=== PATIENT | male | born 1935 | race Caucasian/White ===

== ENCOUNTER 2016-06-03 14:38 | Emergency (ER) | payer MEDICARE, OTHER ==
[2016-06-03] MEDS ORDERED: ASPIRIN 81 MG TAB.CHEW PO ONE ×2 (14:57)
[2016-06-03] MEDS ORDERED: ASPIRIN 81 MG TAB.CHEW ONE (14:57)
--- NOTE | 2016-06-03 15:00 | ERNOTE ---
Dyspnea - General Presenting Symptoms: shortness of breath Time Seen by Provider: 06/03/16 14:38 Source: patient Exam Limitations: no limitations - Immun/Allergies/Home Medications Immunizations: IMMUNIZATION HX Immunizations Up to Date No History of Influenza Vaccine No Hx Pneumococcal Vaccination No Allergies/Adverse Reactions: Allergies No Known Allergies Allergy (Verified 06/03/16 14:54) Home Medications: HOME MEDICATIONS Docusate Sodium [Stool Softener] 50 mg PO DAILY 08/08/14 [Last Taken Unknown] Ibuprofen [Motrin] 600 mg PO Q6H PRN 08/11/14 [Last Taken Unknown] - History of Present Illness Narrative: Patient states that he has been short of breath for three days and feels that ' his chest is full, can't cough it out', denies a cough, but is coughing occasionally while here. Shortness of breath worse with exertion and laying down flat Date (Duration): 05/31/16 Review of Systems - Review of Systems Constitutional: Absent: recent illness, fever EYE: Absent: double vision ENT: Present: nose congestion, nasal drainage Respiratory: Present: See HPI, shortness of breath, cough Cardiology: Present: See HPI Gastrointestinal/Abdominal: Absent: nausea, vomiting, diarrhea, abdominal pain Genitourinary: Present: no symptoms reported Musculoskeletal: Absent: back pain Neurological: Absent: headache, weakness, numbness - Patient's Past Medical History Patient History - Medical: Arthritis Patient History - Cardiac/Respiratory: Asthma Patient History - Cancer: No Hx of Cancer Patient History - Surgical Procedures: Cataracts, Urology - abdominal surgery age 6 months Patient History - Other: None - Social History Living Situations: spouse Abuse History: No History of abuse Psych History: No pertinent hx Smoking Status: Former smoker Smoking Stop Date: 03/13/79 Alcohol Use: none Drug Use: none - Immunizations Immunizations Up to Date: No Hx Pneumococcal Vaccination: No History of Influenza Vaccine: No Physical Exam - Physical Exam General Appearance: Present: wd/wn, alert, no apparent distress Eye Exam: Normal inspection: bilateral Ears, Nose, Throat: Present: normal ENT inspection, normal pharynx Neck: Present: normal inspection Respiratory: Present: no respiratory distress, no accessory muscle use, chest nontender, decreased breath sounds, wheezing - very few Cardiovascular/Chest: Present: regular rate, rhythm, no murmur Gastrointestinal/Abdominal: Present: normal bowel sounds, nontender, nondistended, soft Extremity Exam: Present: no edema Neurological Exam: Present: alert, oriented, normal mood/affect Skin Exam: Present: normal color, warm/dry ED Progress - Results and Orders Patient's Lab Results:: I have reviewed the patient's lab results. - Vital Signs Patient's Vital Signs:: I have reviewed the patient's vital signs. Vital Signs: Vital Signs 06/03/16 06/03/16 14:39 14:47 Temperature 36.2 C L Pulse Rate 92 98 Respiratory 17 Rate Blood Pressure 164/88 O2 Sat by Pulse 92 Oximetry - EKG EKG: NSR, nonspecific ST T wave changes EKG read: Interp. by me - X-Ray X-Ray #1 X-Ray: chest - hyperinflated, no acute finding Interpretation: Reviewed by me - Progress/Reassessment Chief Complaint: Dyspnea Progress Note-Subjective: 06/03/16 16:27 discussed normal test results with patient, he is feeling well, ready to go home Departure Clinical Impression: Bronchitis - Departure Disposition: Home self-care Condition: Good Instructions: Acute Bronchitis, [id number] Additional Instructions: try over the counter mucinex call the family medicine or internal medicine office for a follow up appointment Referrals: Isaak Thompson DO [Staff Physician] -
[2016-06-03 15:10] LABS: Hematocrit 43.4 % (42.0-52.0); Hemoglobin 14.6 gm/dL (13.5-18.0); Mean Cell Volume 88.2 fl (78-100); Mean Corpuscular Hemoglobin 29.7 pg (27-31); Mean Corpuscular Hgb Conc 33.6 g/dl (32-36); Mean Platelet Volume 10.1 fl (6.0-9.5); Platelet Count 156 K/mm3 (150-450); Red Blood Count 4.92 M/mm3 (4.7-6.0); Red Cell Distribution Width 11.8 % (11.5-14.0)
[2016-06-03 15:21] LABS: Total Cells Counted 100
[2016-06-03 15:30] LABS: ALT 21 U/L (19-67); AST 28 U/L (0-48); Albumin * 3.2 gm/dl (3.4-5.0); Alkaline Phosphatase * 109 U/L (50-170); Anion Gap 15.1 mmol/L (6.8-13.8); BNP * 103 pg/mL (5-650); BUN/Creatinine Ratio 19.4 (9.0-21.6); Bilirubin, Total 0.9 mg/dL (0.0-1.1); Blood Urea Nitrogen 18 mg/dL (6-23); Ca. Corrected For Albumin 8.9 mg/dL (8.4-10.2); Calcium * 8.6 mg/dL (7.9-10.9); Carbon Dioxide 28.7 mmol/L (24-32.6); Chloride 101 mmol/L (97-106); Glucose * 115 mg/dL (70-110); Potassium 3.8 mmol/L (3.4-4.6); Sodium 141 mmol/L (132-142); Total Protein 7.1 gm/dL (6.2-8.2)
[2016-06-03 15:34] LABS: Troponin I Less than 0.017 ng/ml (0.00-0.10)
[2016-06-03 15:41] LABS: Band 1 % (0-2.0); Eosinophil 1 % (0-3); Lymphocyte 34 % (20-51); Monocyte 11 % (0-9); Neutrophil 53 % (42-75); Neutrophil # 2.1 K/mm3 (1.3-6.0)
[2016-06-03 15:42] LABS: Platelet Estimate Decreased (NORMAL); RBC Morphology Normal (NORMAL)
[2016-06-03 16:48] VITALS: BP 125/62
== END 2016-06-03 16:27 | disposition home or self-care (01) ==
LOC: ER 14:38
DX: J40 Bronchitis, not specified as acute or chronic (principal); Z87.891 Personal history of nicotine dependence

== ENCOUNTER 2017-02-13 12:12 | Emergency (ER) | payer MEDICARE, OTHER ==
--- NOTE | 2017-02-13 13:45 | ERNOTE ---
Abdominal HPI - Narrative Date of Service: 02/13/17 - General Chief Complaint: Constipation Time Seen by Provider: 02/13/17 13:23 - Immun/Allergies/Home Medications Immunizatons: IMMUNIZATION HX Immunizations Up to Date No History of Influenza Vaccine No Hx Pneumococcal Vaccination No Allergies/Adverse Reactions: Allergies No Known Allergies Allergy (Verified 02/13/17 12:21) Home Medications: HOME MEDICATIONS Ibuprofen [Motrin] 600 mg PO Q6H PRN 08/11/14 [Last Taken Unknown] - History of Present Illness Narrative: Pt. comes in with c/o no BM x 7 days. Pt. states that he grunts and grunts and the L side of his buttock becomes very tender and nothing comes out. Pt. states that he feels so full that he is not eating or drinking. Timing: getting worse Quality: mild, fullness Activities at Onset: none Modifying Factors - (Improves): Present: other - denies Modifying Factors - (Worsens): Present: eating Associated Symptoms: Present: denies symptoms Prior Abdominal Problems: Present: none Prior Treatment: Absent: recently seen, treated by physician, recently hospitalized, currently on antibiotics Review of Systems - Review of Systems Constitutional: Present: no symptoms reported. Absent: fever, chills, weakness , fatigue, malaise EYE: Present: no symptoms reported ENT: Present: no symptoms reported Respiratory: Present: no symptoms reported. Absent: shortness of breath, cough , wheezing Cardiology: Present: no symptoms reported. Absent: chest pain, palpitations, edema Gastrointestinal/Abdominal: Present: constipation, eating less. Absent: nausea , vomiting, diarrhea, abdominal pain Genitourinary: Present: no symptoms reported Musculoskeletal: Present: no symptoms reported. Absent: back pain, joint pain Skin: Present: no symptoms reported. Absent: rash, change in color Neurological: Present: no symptoms reported. Absent: headache, dizziness/light- headedness, numbness, tingling Endocrine: Present: no symptoms reported Hematologic/Lymphatic: Present: no symptoms reported All Other Systems: All systems neg except as marked - Patient's Past Medical History Patient History - Medical: Arthritis Patient History - Cardiac/Respiratory: Asthma Patient History - Cancer: No Hx of Cancer Patient History - Surgical Procedures: Cataracts, Urology Patient History - Other: None - Social History Living Situations: home Abuse History: No History of abuse Psych History: No pertinent hx - Immunizations Immunizations Up to Date: No Hx Pneumococcal Vaccination: No History of Influenza Vaccine: No Physical Exam - Physical Exam General Appearance: Present: wd/wn, alert, no apparent distress Head Exam: Present: normal inspection, no evidence of injury Eye Exam: Normal inspection: bilateral, PERRL: bilateral, EOMI: bilateral Ears, Nose, Throat: Present: normal ENT inspection, normal pharynx Neck: Present: normal inspection, nontender, supple, full range of motion. Absent: lymphadenopathy (R), lymphadenopathy (L) Respiratory: Present: no respiratory distress, normal breath sounds, no accessory muscle use, chest nontender, lungs clear Cardiovascular/Chest: Present: regular rate, rhythm, no murmur, normal peripheral pulses Gastrointestinal/Abdominal: Present: nontender, no organomegaly, abnormal bowel sounds - hypo, distended - diffuse Rectal Exam: Present: nontender, normal rectal tone, other - prostate mildly enlarged and firm. Absent: hemorrhoids Back Exam: Present: normal inspection, normal range of motion, no CVA tenderness , no vertebral tenderness Extremity Exam: Present: normal inspection, non-tender, normal range of motion, no edema Neurological Exam: Present: alert, oriented, normal mood/affect, no motor/ sensory deficits, corrections lieutenant II-XII nml as tested, normal cerebellar test Skin Exam: Present: normal color, warm/dry. Absent: pallor, skin rash ED Progress - Date and Time Seen: Date and Time: 02/13/17 16:12 Pt. had extra large results and states taht he is feeling better. - Vital Signs Patient's Vital Signs:: I have reviewed the patient's vital signs. Vital Signs: Vital Signs 02/13/17 12:16 Temperature 36.8 C Pulse Rate 76 Respiratory 12 Rate Blood Pressure 138/74 O2 Sat by Pulse 94 Oximetry - X-Ray X-Ray #1 X-Ray: abdomen Interpretation: Reviewed by me X-ray Comments: severe stool retention no obstruction - Progress/Reassessment Chief Complaint: Constipation Progress:: Improved Departure Clinical Impression: Constipation Qualifiers: Constipation type: slow transit constipation Qualified Code(s): K59.01 - Slow transit constipation - Departure Disposition: Home self-care Condition: Good Instructions: Constipation, Adult, [id number] Additional Instructions: Please take 1 capful of Miralax daily until having 1-2 BM daily.
[2017-02-13] MEDS ORDERED: ACETAMINOPHEN 500 MG TABLET PO ONE (14:42)
[2017-02-13 16:19] VITALS: BP 130/65
== END 2017-02-13 16:19 | disposition home or self-care (01) ==
LOC: ER 12:12
DX: K59.01 Slow transit constipation (principal)

== ENCOUNTER 2017-04-27 18:27 | Observation (INO) | payer MEDICARE, OTHER ==
[2017-04-27] MEDS ORDERED: TETANUS AND DIPHTHERIA TOXOID 0.5 ML SYRG IM ONE ×2 (18:47→19:30)
--- NOTE | 2017-04-27 19:15 | ERNOTE ---
<Zechariah Bailon - Last Filed: 04/27/17 19:07> Trauma/Assault HPI - Narrative Date of Service: 04/27/17 - General Stated Complaint: FALL Time Seen by Provider: 04/27/17 18:38 Source: patient Exam Limitations: no limitations - Immun/Allergies/Home Medications Immunizations: IMMUNIZATION HX Immunizations Up to Date Yes History of Influenza Vaccine No Hx Pneumococcal Vaccination No Allergies/Adverse Reactions: Allergies No Known Allergies Allergy (Verified 04/27/17 18:37) Home Medications: HOME MEDICATIONS Albuterol Sulfate [Ventolin HFA] 2 puff IH QID 04/27/17 [Last Taken Unknown] Allopurinol [Zyloprim] 600 mg PO DAILY 04/27/17 [Last Taken Unknown] Atenolol [Tenormin] 100 mg PO DAILY 04/27/17 [Last Taken Unknown] Atorvastatin Calcium 20 mg PO DAILY 04/27/17 [Last Taken Unknown] Cetirizine HCl [Zyrtec] 10 mg PO DAILY 04/27/17 [Last Taken Unknown] Chlorthalidone [Hygroton] 25 mg PO DAILY 04/27/17 [Last Taken Unknown] Divalproex Sodium 250 mg PO BID 04/27/17 [Last Taken Unknown] Gabapentin 900 mg PO TID 04/27/17 [Last Taken Unknown] Indomethacin 50 mg PO BID 04/27/17 [Last Taken Unknown] Lisinopril [Zestril] 40 mg PO DAILY 04/27/17 [Last Taken Unknown] Meloxicam [Mobic] 15 mg PO DAILY 04/27/17 [Last Taken Unknown] Potassium Chloride [Klor-Con 10] 10 meq PO DAILY 04/27/17 [Last Taken Unknown] Sildenafil Citrate [Viagra] 100 mg PO PRN 04/27/17 [Last Taken Unknown] amLODIPine BESYLATE [Norvasc] 5 mg PO DAILY 04/27/17 [Last Taken Unknown] glyBURIDE [Micronase] 5 mg PO DAILY 04/27/17 [Last Taken Unknown] metFORMIN HCL [Metformin HCl] 1,000 mg PO BID 04/27/17 [Last Taken Unknown] - History of Present Illness Narrative: patient relates he normally uses walker to ambulate, got feet tangled up and fell alert and orintated Location Occurred: Reports: home Pain Location: Reports: upper extremity - bilateral wrist pain and left shoulder Method of Injury: Reports: fall Severity: mild Modifying Factors - (Improves): Reports: rest Modifying Factors - (Worsens): Reports: movement Loss of Consciousness: Reports: no loss of consciousness Associated Symptoms - Trauma: Reports: denies symptoms Review of Systems - Narrative Narrative: unremarkable - Review of Systems Constitutional: Present: See HPI, weakness, fatigue EYE: Present: no symptoms reported ENT: Present: no symptoms reported Respiratory: Present: no symptoms reported Cardiology: Present: no symptoms reported Gastrointestinal/Abdominal: Present: no symptoms reported Genitourinary: Present: no symptoms reported Musculoskeletal: Present: joint pain, joint swelling, other - pain and tenderness in both wrists abraisions Skin: Present: lesions Neurological: Present: no symptoms reported Endocrine: Present: no symptoms reported Hematologic/Lymphatic: Present: no symptoms reported Psych: Present: no symptoms reported All Other Systems: All systems neg except as marked - Narrative Narrative: unremarkable - Patient's Past Medical History Patient History - Medical: Arthritis Patient History - Cardiac/Respiratory: No pertinent hx Patient History - Cancer: No Hx of Cancer Patient History - Surgical Procedures: Cataracts Patient History - Other: None - Social History Living Situations: home Abuse History: No History of abuse Psych History: No pertinent hx Smoking Status: Former smoker Alcohol Use: none Drug Use: none - Immunizations Immunizations Up to Date: Yes Hx Pneumococcal Vaccination: No History of Influenza Vaccine: No Physical Exam - Physical Exam Narrative: patient alert x 3 General Appearance: Present: mild distress Head Exam: Present: normal inspection, no evidence of injury Eye Exam: Normal inspection: bilateral, PERRL: bilateral, EOMI: bilateral Ears, Nose, Throat: Present: normal ENT inspection Neck: Present: normal inspection, nontender Respiratory: Present: no respiratory distress, normal breath sounds, no accessory muscle use, chest nontender, lungs clear Cardiovascular/Chest: Present: regular rate, rhythm, no murmur, normal peripheral pulses Peripheral Pulses: N=norm/S=strong/W=weak/B=bound/A=absent: Carotid (R): Normal , Carotid (L): Normal, Radial (R): Normal, Radial (L): Normal, Femoral (R): Normal, Femoral (L): Normal, Dorsalis-pedis (R): Normal, Dorsalis-pedis (L): Normal Gastrointestinal/Abdominal: Present: normal bowel sounds, nontender, nondistended, soft, no organomegaly Back Exam: Present: normal inspection, normal range of motion, no CVA tenderness , no vertebral tenderness Extremity Exam: Present: normal inspection, non-tender, normal range of motion, no edema, other - abraisions to both wrists no deformity Neurological Exam: Present: alert, oriented, normal mood/affect, no motor/ sensory deficits DTR: N=norm/NB=norm/brisk/A=abs/DD=dull/dimin/HC=hyperactive: Bicep (R): Normal , Bicep (L): Normal, Tricep (R): Normal, Tricep (L): Normal, Knee (R): Normal, Knee (L): Normal, Ankle (R): Normal, Ankle (L): Normal Skin Exam: Present: normal color, warm/dry, other - abraisions to both wrists Lymphatic Exam: Present: no adenopathy ED Progress - Vital Signs Vital Signs: Vital Signs 04/27/17 18:28 Temperature 37.5 C Pulse Rate 107 H Blood Pressure 142/86 O2 Sat by Pulse 91 Oximetry - Progress/Reassessment Chief Complaint: Fall Departure Clinical Impression: Weakness, Pneumonia, Sepsis - Departure Disposition: [facility] Condition: Fair <Tres Delcid - Last Filed: 04/28/17 00:26> Trauma/Assault HPI - Immun/Allergies/Home Medications Immunizations: IMMUNIZATION HX Immunizations Up to Date Yes History of Influenza Vaccine No Hx Pneumococcal Vaccination No ED Progress - Results and Orders Patient's Lab Results:: I have reviewed the patient's lab results. - Vital Signs Patient's Vital Signs:: I have reviewed the patient's vital signs. Vital Signs: Vital Signs 04/27/17 04/27/17 04/27/17 18:28 18:45 19:15 Temperature 37.5 C Pulse Rate 107 H 100 99 Respiratory 14 Rate Blood Pressure 142/86 128/67 132/75 O2 Sat by Pulse 91 92 93 Oximetry 04/27/17 04/27/17 04/27/17 19:45 20:15 20:45 Temperature Pulse Rate 101 H 91 Respiratory 12 Rate Blood Pressure 130/64 141/84 120/63 O2 Sat by Pulse 92 92 93 Oximetry 04/27/17 04/27/17 04/27/17 21:15 21:45 22:15 Temperature Pulse Rate 96 85 90 Respiratory 12 Rate Blood Pressure 110/62 103/59 116/53 O2 Sat by Pulse 92 93 93 Oximetry 04/27/17 23:00 Temperature Pulse Rate 83 Respiratory 18 Rate Blood Pressure 92/47 O2 Sat by Pulse 92 Oximetry - Progress/Reassessment Progress:: Unchanged Progress Note-Subjective: 04/28/17 00:17 Care the patient was assumed that the change shift from Dr. Mark Gonzalez. x-rays that has been previously ordered of the pelvis, lumbar, shoulder did not show any fractures. There was a questionable navicular fracture at the right wrist, however on exam there was no pain- so likely this was an old fracture. No fractures were read by the radiologist of either wrist. 04/28/17 00:20 On questioning the patient he noted that this morning he was able to walk with his walker, however in the evening she became weaker in the lower extremities. I was very concerned since she was not able to take care of the patient says he was so weak. Denies any fevers, coughing, shortness of breath, or focal weakness. On examination of the laboratory studies it was found that his white blood cell count was elevated at 15.6, lactic acid was elevated at 2.2, and the chest x-ray indicated possible cold pneumonia. The school exam patient had 5 over 5 motor strength in the upper or lower extremities sensation was intact well. He was started on Levaquin 750 mg IV, case is discussed with the [facility] who will admit the patient. Sepsis criteria were met. 04/28/17 00:21 04/28/17 00:24 04/28/17 00:25 Critical Care Time - Critical Care Critical Time Spent:: No
[2017-04-27] MEDS ORDERED: KETOROLAC TROMETHAMINE 60 MG/2 ML VIAL IM ONE ×2 (19:22→19:30)
[2017-04-27 19:24] LABS: Hematocrit 37.9 % (42.0-52.0); Hemoglobin 12.4 gm/dL (13.5-18.0); Mean Cell Volume 86.3 fl (78-100); Mean Corpuscular Hemoglobin 28.2 pg (27-31); Mean Corpuscular Hgb Conc 32.7 g/dl (32-36); Mean Platelet Volume 9.5 fl (6.0-9.5); Neutrophil # 13.6 K/mm3 (1.3-6.0); Neutrophil % 86.7 % (42-75.0); Platelet Count 292 K/mm3 (150-450); Red Blood Count 4.39 M/mm3 (4.7-6.0); Red Cell Distribution Width 12.9 % (11.5-14.0); White Blood Count 15.6 K/mm3 (4.0-10.5)
[2017-04-27 19:37] LABS: Albumin * 2.2 gm/dl (3.4-5.0); Anion Gap 9.6 mmol/L (6.8-13.8); BUN/Creatinine Ratio 26.4 (9.0-21.6); Bilirubin, Total 0.8 mg/dL (0.0-1.1); Calcium * 8.9 mg/dL (7.9-10.9); Carbon Dioxide 33.9 mmol/L (24-32.6); Potassium 3.5 mmol/L (3.4-4.6)
[2017-04-27 20:03] LABS: Urine Bilirubin Negative (NEGATIVE); Urine Blood Negative /ul (NEGATIVE); Urine Ketone Negative (NEGATIVE); Urine Nitrite Negative (NEGATIVE); Urine Protein 15 mg/dL (NEGATIVE); Urine Specific Gravity 1.025 SP.GR. (1.005-1.030); Urine Urobilinogen 4 EU/dl (NORMAL); Urine pH 5.5 pH (5.0-7.0)
[2017-04-27 20:17] LABS: Urine Appearance Clear; Urine Bacteria TRACE; Urine Color Amber; Urine Mucus Few - 1+; Urine RBC TRACE /hpf (0-5); Urine WBC TRACE /hpf (0-5)
[2017-04-27] MEDS ORDERED: LEVOFLOXACIN IN DEXTROSE 5 % 750 MG/150 ML BAG IV ONE (23:13)
[2017-04-27] MEDS ORDERED: NORMAL SALINE 1,000 ML IV ONE (23:26)
--- NOTE | 2017-04-28 00:56 | HP ---
Chief Complaint - Chief Complaint Date of Service: 04/28/17 Time of Service: 00:56 Chief Complaint: left shoulder pain s/p fall History of Present Illness: 81 years old male adm to the hospital with reports of left shoulder pain, weakness and cough. PMH significant for osteoarthritis and chronic lower extremity edema. pt stated while at home today he was going to the bathroom using his walker, he felt weak when her trip and fell on his left side. Upon hitting his left side he was complaining of knee pain, wrist pain and left side pain. He denies LOC, headache, dizziness, shortness of breath, fever, chills, focal weakness or palpitation before and after incident. In ER x-rays were obtained and showed osteopenia and osteoarthritis. CXR: Bilateral right more than left basilar opacity, potential multifocal pneumonia. Possible eight rib fracture of undetermined age and significance. WBC 15 with left shift, Lactic acid 2.2 other labs were unremarkable. Influenza were negative, he was given IVF bolus, blood cultures pending and initiated on Levaquin. Plan of care discussed with pt and they verbalized understanding and agrees. - Patient's Past Medical History Patient History - Medical: Arthritis, Cataracts, Osteoarthritis, Other - small bowel obstruction Patient History - Cardiac/Respiratory: No pertinent hx Patient History - Cancer: No Hx of Cancer Patient History - Surgical Procedures: Cataracts, Other - colon resection s/p small bowel obstruction at 6 months old Patient History - Other: None - Family History Family History:: no untoward family reactions to anesthesia - Family History Brother Family History - Medical: Father Family History - Medical: Mother Family History - Medical: - Social History Living Situations: spouse Abuse History: No History of abuse Psych History: No pertinent hx Does anyone smoke in the home?: No Smoking Status: Former smoker Have you smoked in the past 12 months: No Do you dip or chew tobacco: No Patient requests Smoking Cessation Consult: No Initiate information on Smoking Cessation: No Alcohol Use: none Drug Use: none - Immunizations Immunizations Up to Date: Yes Hx Pneumococcal Vaccination: No History of Influenza Vaccine: No Review Of Systems (GEN) - Review of Systems Generalized/Overall Review: Present: Weakness EENTM: Present: No Symptoms Reported Respiratory: Present: Cough, Wheezing Cardiac: Present: No Symptoms Reported Abdominal: Present: No Symptoms Reported Genitourinary: Present: No Symptoms Reported Musculoskeletal: Present: Joint Pain Neurological: Present: Weakness Skin: Present: No Symptoms Reported Endocrine: Present: No Symptoms Reported Allergies/Adverse Reactions: Allergies Allergy/AdvReac Type Severity Reaction Status Date / Time No Known Allergies Allergy Verified 04/27/17 18:37 Home Medications: HOME MEDICATIONS NK [No Home Medication] 04/28/17 [Last Taken Unknown] Exam - Exam Vital Signs: Vital Signs - Last Taken Temp 37.3 C 04/28/17 00:30 Pulse 89 04/28/17 00:30 Resp 18 04/28/17 00:30 BP 90/57 04/28/17 00:30 Pulse Ox 94 04/28/17 00:30 Constitutional: Present: Alert, Oriented x3, Cooperative, Well developed, No distress, Elderly ENT Exam: Present: hearing grossly normal Eye Exam: bilateral eye: normal inspection Neck: Present: full range of motion Back Exam: Present: normal inspection Breasts: Present: Exam deferred Respiratory: Present: no respiratory distress, no accessory muscle use, rhonchi , wheezing Cardiovascular/Chest: Present: normal peripheral pulses, regular rate, rhythm, no chest tenderness, edema Peripheral Pulses: dorsalis-pedis (R): 3+, dorsalis-pedis (L): 3+ Abdomen: Present: Normal bowel sounds, soft, nontender, nondistended, no rebound tenderness /Rectal: Present: Exam deferred Extremity: Present: normal range of motion, non-tender, lower extremity edema, swelling Skin Exam: Present: normal color, warm/dry, no cyanosis Lymphatic: Present: no adenopathy Neurologic: Present: oriented x 3 Appearance: Present: appropriate appearance Eye contact: Present: cooperative, good eye contact Thoughts: Present: normal thought pattern Diagnostic Studies: Laboratory Results WBC 15.6 K/mm3 (4.0-10.5) H 04/27/17 19:22 RBC 4.39 M/mm3 (4.7-6.0) L 04/27/17 19:22 Hgb 12.4 gm/dL (13.5-18.0) L 04/27/17 19:22 Hct 37.9 % (42.0-52.0) L 04/27/17 19:22 MCV 86.3 fl (78-100) 04/27/17 19:22 MCH 28.2 pg (27-31) 04/27/17 19: MCHC 32.7 g/dl (32-36) 04/27/17 19: RDW 12.9 % (11.5-14.0) 04/27/17 19: Plt Count 292 K/mm3 (150-450) 04/27/17 19: MPV 9.5 fl (6.0-9.5) 04/27/17 19: Immature Gran % (Auto) 1.00 % (0.001-0.429) H 04/27/17: Immature Gran # (Auto) 0.16 K/mm3 (0.000-0.0310) H 04/27/17: Neutrophils % 86.7 % (42-75.0) H 04/27/17: Lymphocytes % 5.0 % (20-51) L 04/27/17: Monocytes % 6.3 % (0.0-9) 04/27/17: Eosinophils % 0.9 % (0.0-3.0) 04/27/17: Basophils % 0.1 % (0.0-1.0) 04/27/17: Nucleated RBC % 0.0 k/mm3 (0-1) 04/27/17 19: Neutrophils # 13.6 K/mm3 (1.3-6.0) H 04/27/17: Lymphocytes # 0.8 k/mm3 (1.5-3.5) L 04/27/17: Monocytes # 1.0 k/mm3 (0.0-1.0) 04/27/17: Eosinophils # 0.1 k/mm3 (0.0-0.7) 04/27/17: Absolute Basophils 0.0 k/mm3 (0.0-0.1) 04/27/17 19: Sodium 136 mmol/L (132-142) 04/27/17 19: Plasma Sodium 136 mmol/L (130-142) 04/27/17 19: Potassium 3.5 mmol/L (3.4-4.6) 04/27/17: Chloride 96 mmol/L (97-106) L 04/27/17:22 Carbon Dioxide 33.9 mmol/L (24-32.6) H 04/27/17 19:22 Anion Gap 9.6 mmol/L (6.8-13.8) 04/27/17 19:22 BUN 24 mg/dL (6-23) H 04/27/17 19:22 Creatinine 0.91 mg/dL (0.4-1.4) 04/27/17 19:22 Est GFR (Non-Af Amer) 85 mL/min (60-130) 04/27/17 19:22 BUN/Creatinine Ratio 26.4 (9.0-21.6) H 04/27/17 19:22 Random Glucose 129 mg/dL (70-110) H 04/27/17 19:22 Lactic Acid, Venous 2.2 mmol/L (0.4-1.9) H* 04/27/17 19:20 Calcium 8.9 mg/dL (7.9-10.9) 04/27/17 19:22 Calcium Adj for Albumin 10.0 mg/dL (8.4-10.2) 04/27/17 19:22 Total Bilirubin 0.8 mg/dL (0.0-1.1) 04/27/17 19:22 AST 18 U/L (0-48) 04/27/17 19:22 ALT 24 U/L (19-67) 04/27/17 19:22 Alkaline Phosphatase 123 U/L (50-170) 04/27/17 19:22 Troponin I Less than 0.017 ng/ml (0.00-0.10) 04/27/17 19:20 Total Protein 7.0 gm/dL (6.2-8.2) 04/27/17 19:22 Albumin 2.2 gm/dl (3.4-5.0) L 04/27/17 19:22 Procalcitonin 0.35 ng/mL (0.05-0.50) 04/27/17 23:40 Urine Color Mare 04/27/17 17:51 Urine Appearance Clear 04/27/17 17:51 Urine pH 5.5 pH (5.0-7.0) 04/27/17 17:51 Ur Specific [place] 1.025 SP.GR. (1.005-1.030) 04/27/17 17:51 Urine Protein 15 mg/dL (NEGATIVE) H 04/27/17 17:51 Urine Glucose (UA) Negative mg/dL (NEGATIVE) 04/27/17 17:51 Urine Ketones Negative mg/dL (NEGATIVE) 04/27/17 17:51 Urine Blood Negative /ul (NEGATIVE) 04/27/17 17:51 Urine Nitrate Negative (NEGATIVE) 04/27/17 17:51 Urine Bilirubin Negative mg/dl (NEGATIVE) 04/27/17 17:51 Prot Sulfosalicylic Acd Negative mg/dL (0) 04/27/17 17:51 Urine Urobilinogen 4 EU/dl (NORMAL) H 04/27/17 17:51 Ur Leukocyte Esterase Negative /ul (NEGATIVE) 04/27/17 17:51 Urine RBC Trace /hpf (0-5) 04/27/17 17:51 Urine WBC Trace /hpf (0-5) 04/27/17 17:51 Ur Epithelial Cells 0-5 /hpf (0-5) 04/27/17 17:51 Urine Bacteria Trace (NONE) 04/27/17 17:51 Urine Mucus Few - 1+ (NONE) H 04/27/17 17:51 Urine Culture Comments No culture indicated 04/27/17 17:51 CXR: Bilateral right more than left basilar opacilty, potential multifocal pneumonia. Possible eight rib fracture of indetermined age and significance. Assessment/Plan - Narrative Narrative: ? Bilateral Pneumonia On adm to floor WBC 15, Lactic acid 2.2. procal 0.35, temp 37.3, BP 108/60 CXR: Bilateral right more than left basilar opacity, potential multifocal pneumonia. Possible eight rib fracture of indetermined age and significance. IVF Bolus given in ER and continue with IVF 125ml/hr Levaquin was inititated Blood culture, sputum cultures and legionella antigen/pneumonae pending encourage use of Cornet Q2hr Schedule Neb treatment Influenza negative Chronic Arthritis pt stated he was going to have PT while at home beginning tomorrow He uses the walker while ambulating Sirs vs sepsis- likely suspicious due to pneumonia In ER HR 107, Temp 37.3,WBC >15k, BP 142/86 and lactic acid 2.2 Repeated lactic acid 1.1 and IVF Bolus given Continue with IVF Code status: DNR GI ppx:pepcid VTE ppx: Lovenox 40 Q24hr Time 45 minutes and case discussed with Dr Mratin - Assessment/Plan (1) Pneumonia Problem: Acute (2) Arthritis Problem: Chronic
[2017-04-28] MEDS ORDERED: POTASSIUM CHLORIDE 20 MEQ TABLET.SA PO ONE (01:01)
[2017-04-28] MEDS ORDERED: NORMAL SALINE 1,000 ML IV PRN (01:04)
[2017-04-28] MEDS: ALBUTEROL SULFATE/IPRATROPIUM 3 ML NEBU IH SCH ×3 (02:14→13:57)
[2017-04-28] MEDS ORDERED: POTASSIUM CHLORIDE 20 MEQ TABLET.SA ONE (02:20)
[2017-04-28 06:05] LABS: Hematocrit 32.1 % (42.0-52.0); Hemoglobin 10.4 gm/dL (13.5-18.0); Mean Cell Volume 87.5 fl (78-100); Mean Corpuscular Hemoglobin 28.3 pg (27-31); Mean Corpuscular Hgb Conc 32.4 g/dl (32-36); Mean Platelet Volume 9.7 fl (6.0-9.5); Neutrophil # 7.8 K/mm3 (1.3-6.0); Neutrophil % 76.6 % (42-75.0); Platelet Count 234 K/mm3 (150-450); Red Blood Count 3.67 M/mm3 (4.7-6.0); Red Cell Distribution Width 13.1 % (11.5-14.0); White Blood Count 10.2 K/mm3 (4.0-10.5)
[2017-04-28] MEDS ORDERED: FAMOTIDINE 20 MG TABLET PO SCH (09:00)
[2017-04-28] MEDS ORDERED: ENOXAPARIN SODIUM 40 MG/0.4 ML SYRG SC SCH (09:00)
[2017-04-28 11:41] VITALS: BP 122/64
--- NOTE | 2017-04-28 12:46 | DS ---
(1) Multiple falls Problem: Acute (2) Generalized weakness Diagnosis(s): Acute on Chronic Problem: Acute Description of Stay: Hospital Course: The patient was admitted to the hospital for possible PNA and generalized weakness. When I saw the patient the following AM, he stated that he felt back to his baseline although he does admit to progressively worsening generalized weakness. I am not convinced of a PNA either clinically or on CXR. No signs of acute infection. Patient's hospital stay was uneventful and the patient will be discharged home with home health care and instructed to follow- up with his PCP within 1-2 weeks. Procedures Performed: none Results and Findings: Laboratory Tests 04/27/17 04/27/17 04/27/17 17:51 19:20 19:20 WBC Hgb Hct MCV Plt Count Sodium Plasma Sodium Potassium Chloride Carbon Dioxide Anion Gap BUN Creatinine Est GFR (Non-Af Amer) BUN/Creatinine Ratio Random Glucose Lactic Acid, Venous 2.2 H* Calcium Calcium Adj for Albumin Total Bilirubin AST ALT Alkaline Phosphatase Troponin I Less than 0.017 Total Protein Albumin Procalcitonin Urine Color Mare Urine Appearance Clear Urine pH 5.5 Ur Specific [place] 1.025 Urine Protein 15 H Urine Glucose (UA) Negative Urine Ketones Negative Urine Blood Negative Urine Nitrate Negative Urine Bilirubin Negative Prot Sulfosalicylic Acd Negative Urine Urobilinogen 4 H Ur Leukocyte Esterase Negative Urine RBC Trace Urine WBC Trace Ur Epithelial Cells 0-5 Urine Bacteria Trace Urine Mucus Few - 1+ H Urine Culture Comments No culture indicated Influenza Type A Ag Influenza Type B Ag Urine Legionella Ag S. pneumoniae Ag Intrp 04/27/17 04/27/17 04/27/17 19:22 19:22 23:40 WBC 15.6 H Hgb 12.4 L Hct 37.9 L MCV 86.3 Plt Count 292 Sodium 136 Plasma Sodium 136 Potassium 3.5 Chloride 96 L Carbon Dioxide 33.9 H Anion Gap 9.6 BUN 24 H Creatinine 0.91 Est GFR (Non-Af Amer) 85 BUN/Creatinine Ratio 26.4 H Random Glucose 129 H Lactic Acid, Venous Calcium 8.9 Calcium Adj for Albumin 10.0 Total Bilirubin 0.8 AST 18 ALT 24 Alkaline Phosphatase 123 Troponin I Total Protein 7.0 Albumin 2.2 L Procalcitonin 0.35 Urine Color Urine Appearance Urine pH Ur Specific [place] Urine Protein Urine Glucose (UA) Urine Ketones Urine Blood Urine Nitrate Urine Bilirubin Prot Sulfosalicylic Acd Urine Urobilinogen Ur Leukocyte Esterase Urine RBC Urine WBC Ur Epithelial Cells Urine Bacteria Urine Mucus Urine Culture Comments Influenza Type A Ag Influenza Type B Ag Urine Legionella Ag S. pneumoniae Ag Intrp 04/28/17 04/28/17 04/28/17 00:48 01:42 04:17 WBC Hgb Hct MCV Plt Count Sodium Plasma Sodium Potassium Chloride Carbon Dioxide Anion Gap BUN Creatinine Est GFR (Non-Af Amer) BUN/Creatinine Ratio Random Glucose Lactic Acid, Venous 1.1 Calcium Calcium Adj for Albumin Total Bilirubin AST ALT Alkaline Phosphatase Troponin I Total Protein Albumin Procalcitonin Urine Color Urine Appearance Urine pH Ur Specific [place] Urine Protein Urine Glucose (UA) Urine Ketones Urine Blood Urine Nitrate Urine Bilirubin Prot Sulfosalicylic Acd Urine Urobilinogen Ur Leukocyte Esterase Urine RBC Urine WBC Ur Epithelial Cells Urine Bacteria Urine Mucus Urine Culture Comments Influenza Type A Ag Negative Influenza Type B Ag Negative Urine Legionella Ag Not detected S. pneumoniae Ag Intrp Not detected 04/28/17 06:02 WBC 10.2 D Hgb 10.4 L Hct 32.1 L MCV 87.5 Plt Count 234 Sodium Plasma Sodium Potassium Chloride Carbon Dioxide Anion Gap BUN Creatinine Est GFR (Non-Af Amer) BUN/Creatinine Ratio Random Glucose Lactic Acid, Venous Calcium Calcium Adj for Albumin Total Bilirubin AST ALT Alkaline Phosphatase Troponin I Total Protein Albumin Procalcitonin Urine Color Urine Appearance Urine pH Ur Specific [place] Urine Protein Urine Glucose (UA) Urine Ketones Urine Blood Urine Nitrate Urine Bilirubin Prot Sulfosalicylic Acd Urine Urobilinogen Ur Leukocyte Esterase Urine RBC Urine WBC Ur Epithelial Cells Urine Bacteria Urine Mucus Urine Culture Comments Influenza Type A Ag Influenza Type B Ag Urine Legionella Ag S. pneumoniae Ag Intrp Discharge Disposition: Home w/home health care Discharge Location: Other - Home with home health care Disposition: Home Health Service Condition: Stable Discharge Activity: Activity as tolerated Discharge Diet: General/regular food M[facility] Therapy: Physicial Therapy, Occupation Therapy Problem Oriented Discharge Instructions to Patient/Family: Community-Acquired Pneumonia, Adult, [id number] Additional Patient Instructions (free text): -Please make TCM appointment unless alf discharge. Thank you! Lilly @ [phone]. [facility] on going, please call and fax discharge orders to them. -Follow-up with PCP within 1-2 weeks -[facility] Follow up appointment with Dr. Hidalgo on 05/09/17 at 1:45pm. Complete Home Medications List: Complete Home Medication List: NK [No Home Medication] 04/28/17
[2017-04-28] MEDS ORDERED: LEVOFLOXACIN IN DEXTROSE 5 % 750 MG/150 ML BAG IV SCH (22:00)
== END 2017-04-28 15:50 | disposition home health service (06) ==
LOC: ER 18:27 → MS 23:52
PROVIDERS: ADMIT Nurse Practitioner; ATTEND Internal Medicine
DX: J18.9 Pneumonia, unspecified organism (principal); R53.1 Weakness; Z91.81 History of falling; M19.90 Unspecified osteoarthritis, unspecified site; I51.7 Cardiomegaly; I70.0 Atherosclerosis of aorta; M85.80 Other specified disorders of bone density and structure, unspecified site; M18.9 Osteoarthritis of first carpometacarpal joint, unspecified; Z68.23 Body mass index [BMI] 23.0-23.9, adult; Z23 Encounter for immunization
CPT/HCPCS: 36415; 71045; 72072; 72110; 72170; 73030; 73110; 80053; 81001; 83605; 84145; 84484; 85025; 87040; 87400; 87449; 90471; 90715; 93005; 94640; 96372; 97110; 97161; 99285; G0378; G8978; G8979; G8980

== ENCOUNTER 2017-05-15 07:18 | Inpatient (IN) | payer MEDICARE, OTHER ==
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
[2017-05-15 08:36] LABS: Hematocrit 34.9 % (42.0-52.0); Hemoglobin 11.6 gm/dL (13.5-18.0); Mean Corpuscular Hemoglobin 28.6 pg (27-31); Mean Corpuscular Hgb Conc 33.2 g/dl (32-36); Mean Platelet Volume 9.8 fl (6.0-9.5); Neutrophil % 83.8 % (42-75.0); Platelet Count 252 K/mm3 (150-450); Red Blood Count 4.06 M/mm3 (4.7-6.0); Red Cell Distribution Width 13.2 % (11.5-14.0); White Blood Count 13.1 K/mm3 (4.0-10.5)
[2017-05-15 08:46] LABS: Anion Gap 10.9 mmol/L (6.8-13.8); BUN/Creatinine Ratio 21.7 (9.0-21.6); Bilirubin, Total 0.8 mg/dL (0.0-1.1); Ca. Corrected For Albumin 10.1 mg/dL (8.4-10.2); Calcium * 8.8 mg/dL (7.9-10.9); Carbon Dioxide 33.5 mmol/L (24-32.6); Potassium 3.4 mmol/L (3.4-4.6); Total Protein 6.6 gm/dL (6.2-8.2)
[2017-05-15] MEDS ORDERED: FUROSEMIDE 10 MG/ML VIAL IV ONE (10:59)
[2017-05-15] MEDS ORDERED: METOPROLOL TARTRATE 25 MG TABLET PO ONE (10:59)
[2017-05-15] MEDS ORDERED: METOPROLOL TARTRATE 25 MG TABLET ONE (11:15)
[2017-05-15] MEDS ORDERED: FUROSEMIDE 10 MG/ML VIAL ONE (11:15)
--- NOTE | 2017-05-15 18:53 | HP ---
Chief Complaint - Chief Complaint Date of Service: 05/15/17 Time of Service: 18:21 Chief Complaint: weakness and multiple falls. History of Present Illness: is an 81-year-old gentleman with him just recently become acquainted in the office. He was in for his initial exam less than 2 weeks ago. He was brought in because of weakness and multiple falls and accelerated weight loss at that time. He was in atrial fibrillation with RVR in the office. Chemistry profile was essentially uneventful with normal renal and hepatic studies. The EKG shows atrial fibrillation with RVR. He was scheduled for a 12-lead EKG and an echocardiogram to be done today. He fell again at home and was unable to get up. His PET about 2 hours in the floor before being found by his son. EMS was summoned and he was brought to the hospital for further evaluation. He was atrial fibrillation. Chest x-ray reviews show small pleural effusions and increased intervascular volume. I spoke with the ER physician and reviewed the case with her. We elected to give him Lasix 20 mg IV push and he has diuresed fair amount with that. I also spoke with the dietitian who is very concerned about his accelerated weight loss and weakness. She believes he is malnourished and with an albumin of 2 certainly is low in protein. His admission labs reveals normal renal and hepatic function studies and electrolytes are normal. The CBC has a mildly decreased hemoglobin and hematocrit and a mildly elevated white count. The echocardiogram was done at 1: 00 this afternoon and results are still pending this dictation. This evening he remains in atrial fibrillation but with a controlled ventricular rate of about 80. The lungs have bibasilar crackles. There is no neck vein distention and HJR is negative at 90. He has some pitting edema in the lower extremities left leg is worse than right. He has some pain on palpation of the thoracic spine in the area of T6. There is a question as to whether there is an acute on chronic old T6 compression injury. - Narrative Narrative: Wagner worked up until he was about 80. There is some confusion over the amount of weight that he has lost over what period of time. I was told he had lost about 60 pounds over the last 6 months and the dietitian was told that he lost about 60 pounds over the last 5 months. At any rate it as a significant accelerated weight loss. He has had some hard odors from his food discharging off for eating especially meat. He can't tolerate beef and doesn't like fish. The sources of his protein and therefore suspect. - Patient's Past Medical History Patient History - Medical: Arthritis, Cataracts, Osteoarthritis, Other Patient History - Cardiac/Respiratory: Asthma Patient History - Cancer: No Hx of Cancer Patient History - Surgical Procedures: Cataracts, Other Patient History - Other: None - Family History Mother Family History - Medical: Family History - Cardiac/Respiratory: Coronary Heart Disease, Myocardial Infarction Family History - Cancer: No pertinent family hx Father Family History - Medical: Family History - Cardiac/Respiratory: No pertinent hx Family History - Cancer: No pertinent family hx Brother Family History - Medical: - Social History Living Situations: spouse Abuse History: No History of abuse Psych History: No pertinent hx Does anyone smoke in the home?: No Smoking Status: Former smoker Have you smoked in the past 12 months: No Do you dip or chew tobacco: No Patient requests Smoking Cessation Consult: No Alcohol Use: none Drug Use: none - Immunizations Immunizations Up to Date: Yes Hx Pneumococcal Vaccination: No History of Influenza Vaccine: No Review Of Systems (GEN) - Review of Systems Generalized/Overall Review: Present: Weakness, Fatigue EENTM: Present: No Symptoms Reported Respiratory: Present: Cough, Shortness of Breath Cardiac: Present: Palpitations Abdominal: Absent: No Symptoms Reported - He has early satiety and certain foods smell awful to him and in particular meat items. Genitourinary: Present: Incontinent Musculoskeletal: Present: Other - Diffuse muscle weakness. He has had 8 falls now over the last few weeks. So far he is avoided serious injury. He fell this morning and spent about 2 hours on the floor before being found. He also has some mid dorsal back pain.. Absent: No Symptoms Reported Neurological: Present: Weakness, Other - He has had a change in smell and this olfactory change causes him not to want to eat much. He still likes ice cream and he likes carrots and peas. He doesn't want to eat fish or chicken and says that hamburger makes him nauseous. He also gets full very quickly. Skin: Present: No Symptoms Reported Endocrine: Present: No Symptoms Reported Misc: All systems neg except as marked Additional Comments: I suspect there is some degree of dementia. He is conversational on the surface but has difficulty with short-term recall in particular. He knows that he a lot for lunch she'll does remember what. He is only a fair historian. Immunizations: IMMUNIZATION HX Immunizations Up to Date Yes History of Influenza Vaccine No Hx Pneumococcal Vaccination No Allergies/Adverse Reactions: Allergies Allergy/AdvReac Type Severity Reaction Status Date / Time No Known Allergies Allergy Verified 05/15/17 12:10 Home Medications: HOME MEDICATIONS Furosemide [Lasix] 20 mg PO DAILY@1300 05/15/17 [Last Taken 05/14/17] Metoprolol Succinate [Toprol Xl] 25 mg PO DAILY 05/15/17 [Last Taken 05/14/17] Exam - Exam Vital Signs: Vital Signs - Last Taken Temp 36.4 C L 05/15/17 11:47 Pulse 123 H 05/15/17 11:49 Resp 20 05/15/17 11:47 BP 124/72 05/15/17 11:47 Pulse Ox 97 05/15/17 11:47 Constitutional: Present: Alert, Oriented x3, Cooperative, No distress, Elderly, Thin and frail. Absent: Well developed, Well nourished ENT Exam: Present: normal ENT inspection, pharynx normal, TMs normal, hard of hearing, nasal drainage. Absent: hearing grossly normal Eye Exam: bilateral eye: normal inspection, PERRL, EOMI Neck: Present: non-tender, normal inspection, trachea midline, limited range of motion. Absent: full range of motion, lymphadenopathy (R) Back Exam: Present: normal inspection, no CVA tenderness, vertebral tenderness - At approximately T6. Absent: no vertebral tenderness Breasts: Present: Nontender Respiratory: Present: no respiratory distress, no accessory muscle use, crackles , inspiration, No wheezing, plerual rub. Absent: lungs clear, normal breath sounds, rhonchi, stridor, wheezing, expiration (prolonged), No rales Cardiovascular/Chest: Present: irregularly irregular. Absent: regular rate, rhythm Peripheral Pulses: carotid (R): 2+, carotid (L): 2+, femoral (R): 2+, femoral (L ): 2+, dorsalis-pedis (R): 2+, dorsalis-pedis (L): 2+, radial (R): 2+, radial (L ): 2+ Abdomen: Present: Normal bowel sounds, soft, nontender, nondistended, no rebound tenderness, no hepatospenomegaly, no masses. Absent: tender, guarding, rebound tenderness, CVA tenderness /Rectal: Present: Exam deferred Extremity: Present: normal range of motion - For age., non-tender, normal inspection, normal capillary refill, swelling. 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 Absent: normal cerebellar test, no motor/ sensory deficits Appearance: Present: appropriate appearance, denies illness, impaired insight, impaired recent memory. Absent: no memory impairment Eye contact: Present: cooperative, good eye contact, normal speech Thoughts: Present: normal thought pattern, no apparent hallucination Diagnostic Studies: Laboratory Results WBC 13.1 K/mm3 (4.0-10.5) H 05/15/17 08:25 RBC 4.06 M/mm3 (4.7-6.0) L 05/15/17 08:25 Hgb 11.6 gm/dL (13.5-18.0) L 05/15/17 08:25 Hct 34.9 % (42.0-52.0) L 05/15/17 08:25 MCV 86.0 fl (78-100) 05/15/17 08:25 MCH 28.6 pg (27-31) 05/15/17 08:25 MCHC 33.2 g/dl (32-36) 05/15/17 08:25 RDW 13.2 % (11.5-14.0) 05/15/17 08:25 Plt Count 252 K/mm3 (150-450) 05/15/17 08:25 MPV 9.8 fl (6.0-9.5) H 05/15/17 08:25 Immature Gran % (Auto) 0.80 % (0.001-0.429) H 05/15/17 08:25 Immature Gran # (Auto) 0.11 K/mm3 (0.000-0.0310) H 05/15/17 08:25 Neutrophils % 83.8 % (42-75.0) H 05/15/17 08:25 Lymphocytes % 6.3 % (20-51) L 05/15/17 08:25 Monocytes % 8.3 % (0.0-9) 05/15/17 08:25 Eosinophils % 0.6 % (0.0-3.0) 05/15/17 08:25 Basophils % 0.2 % (0.0-1.0) 05/15/17 08:25 Nucleated RBC % 0.0 k/mm3 (0-1) 05/15/17 08:25 Neutrophils # 11.0 K/mm3 (1.3-6.0) H 05/15/17 08:25 Lymphocytes # 0.8 k/mm3 (1.5-3.5) L 05/15/17 08:25 Monocytes # 1.1 k/mm3 (0.0-1.0) H 05/15/17 08:25 Eosinophils # 0.1 k/mm3 (0.0-0.7) 05/15/17 08:25 Absolute Basophils 0.0 k/mm3 (0.0-0.1) 05/15/17 08:25 Sodium 138 mmol/L (132-142) 05/15/17 08:25 Plasma Sodium 139 mmol/L (130-142) 05/15/17 08:25 Potassium 3.4 mmol/L (3.4-4.6) 05/15/17 08:25 Chloride 97 mmol/L (97-106) 05/15/17 08:25 Carbon Dioxide 33.5 mmol/L (24-32.6) H 05/15/17 08:25 Anion Gap 10.9 mmol/L (6.8-13.8) 05/15/17 08:25 BUN 20 mg/dL (6-23) 05/15/17 08:25 Creatinine 0.92 mg/dL (0.4-1.4) 05/15/17 08:25 Est GFR (Non-Af Amer) 84 mL/min (60-130) 05/15/17 08:25 BUN/Creatinine Ratio 21.7 (9.0-21.6) H 05/15/17 08:25 Random Glucose 135 mg/dL (70-110) H 05/15/17 08:25 Calcium 8.8 mg/dL (7.9-10.9) 05/15/17 08:25 Calcium Adj for Albumin 10.1 mg/dL (8.4-10.2) 05/15/17 08:25 Total Bilirubin 0.8 mg/dL (0.0-1.1) 05/15/17 08:25 AST 18 U/L (0-48) 05/15/17 08:25 ALT 24 U/L (19-67) 05/15/17 08:25 Alkaline Phosphatase 119 U/L (50-170) 05/15/17 08:25 B-Natriuretic Peptide 619 pg/mL (5-650) 05/15/17 08:25 Total Protein 6.6 gm/dL (6.2-8.2) 05/15/17 08:25 Albumin 2.0 gm/dl (3.4-5.0) L 05/15/17 08:25 Assessment/Plan - Narrative Narrative: Monitor vital signs, heart rate, and place on telemetry this evening. Check infrequently see if he needs to urinate so that he doesn't get up unattended. Review echocardiogram. Continue to diurese but increase to 40 mg per day and add KCl 20 mEq 1 daily. Physical therapy is to re-eval and make recommendations for treatment. - Procedures Results: Echocardiogram results are pending at this moment. - Assessment/Plan (1) Congestive heart failure (CHF) Problem: Acute Qualifiers: Congestive heart failure type: unspecified Congestive heart failure chronicity: unspecified Qualified Code(s): I50.9 - Heart failure, unspecified (2) Atrial fibrillation Problem: Chronic Qualifiers: Atrial fibrillation type: unspecified Qualified Code(s): I48.91 - Unspecified atrial fibrillation (3) Hypoxemia Problem: Acute (4) Generalized weakness Problem: Acute (5) Multiple falls Problem: Acute (6) Adult failure to thrive Problem: Acute
[2017-05-16 05:40] LABS: Hematocrit 33.8 % (42.0-52.0); Hemoglobin 10.9 gm/dL (13.5-18.0); Mean Corpuscular Hemoglobin 27.7 pg (27-31); Mean Corpuscular Hgb Conc 32.2 g/dl (32-36); Mean Platelet Volume 10.2 fl (6.0-9.5); Neutrophil # 7.8 K/mm3 (1.3-6.0); Neutrophil % 71.3 % (42-75.0); Platelet Count 258 K/mm3 (150-450); Red Blood Count 3.93 M/mm3 (4.7-6.0); Red Cell Distribution Width 13.2 % (11.5-14.0)
[2017-05-16 05:50] LABS: Calcium * 8.4 mg/dL (7.9-10.9); Carbon Dioxide 33.1 mmol/L (24-32.6); Estimated Creat Clear 92.8; Magnesium 1.8 mg/dL (1.2-2.8); Potassium 3.1 mmol/L (3.4-4.6)
[2017-05-16] MEDS: FUROSEMIDE 40 MG TABLET PO SCH (08:37)
[2017-05-16] MEDS: METOPROLOL SUCCINATE 25 MG TABLET.SA PO SCH (08:37)
[2017-05-16] MEDS: POTASSIUM CHLORIDE 20 MEQ TABLET.SA PO SCH (08:39)
--- NOTE | 2017-05-16 09:35 | PN ---
Subjective - Date and Time Seen Date: 05/16/17 Time: 09:10 Subjective Narrative: Uneventful night. Feeling better this morning. Still to weak to get up independently. Objective Objective Narrative: VSS More alert and responsive this morning. Urinated several times through the night. Eating better this morning. He remembers everything about yesterday's events. No memory impairment is obvious this morning. Monitor strips show A-fib with controlled VR. Pulse ox on arrival on room air was 88%. On 1 L NC it is 90- 92%. He is 90% on room air at rest today. I will ambulate him checking pulse ox this morning. - Review of Systems Generalized/Overall Review: Reports: Weakness, Weight loss EENTM: Reports: No Symptoms Reported Respiratory: Reports: Shortness of Breath Cardiac: Reports: Palpitations Abdominal: Reports: No Symptoms Reported, Other - decreased appetite Genitourinary Symptoms: Reports: No Symptoms Reported. Denies: Incontinent Musculoskeletal Complaints: Reports: Other - muscle weakness Neurological: Reports: No Symptoms Reported, Weakness. Denies: Tremors, Pre- existing Deficit Skin: Reports: No Symptoms Reported Endocrine: Reports: No Symptoms Reported Misc: All systems neg except as marked - Vitals Vitals: Last Vital Signs Temp 36.5 C 05/16/17 06:49 Pulse 91 05/16/17 08:37 Resp 16 05/16/17 06:49 BP 113/68 05/16/17 08:37 Pulse Ox 90 05/16/17 06:49 - Abnormal Lab Findings Abnormal Lab Findings: Abnormal Lab Results 05/16/17 05/16/17 Range/Units 05:15 05:15 WBC 11.0 H (4.0-10.5) K/mm3 RBC 3.93 L (4.7-6.0) M/mm3 Hgb 10.9 L (13.5-18.0) gm/dL Hct 33.8 L (42.0-52.0) % MPV 10.2 H (6.0-9.5) fl Immature Gran % (Auto) 1.10 H (0.001-0.429) % Immature Gran # (Auto) 0.12 H (0.000-0.0310) K/mm3 Lymphocytes % 16.2 L (20-51) % Neutrophils # 7.8 H (1.3-6.0) K/mm3 Potassium 3.1 L (3.4-4.6) mmol/L Carbon Dioxide 33.1 H (24-32.6) mmol/L BUN/Creatinine Ratio 24.0 H (9.0-21.6) Random Glucose 122 H (70-110) mg/dL - EKG/Xray Findings EKG: rhythm - Atrial fib altgernating with NSR. No pauses or blocks. No svt or VT per telemetry. EKG read: Reviewed by me - Exam Constitutional: Present: Alert, Oriented x3, Cooperative, Well developed, Elderly, Thin and frail. Absent: Well nourished ENT Exam: Present: normal ENT inspection, hearing grossly normal, pharynx normal , TMs normal, hard of hearing Neck: Present: non-tender. Absent: full range of motion Breasts: Present: Nontender Respiratory: Present: chest non-tender, crackles - posterior bases. Absent: No rales Cardiovascular/Chest: Present: normal peripheral pulses, no chest tenderness, no edema, no gallop, no JVD, no murmur, irregularly irregular. 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 Absent: no memory impairment Eye contact: Present: cooperative, good eye contact, normal speech Thoughts: Present: normal thought pattern, no apparent hallucination Assessment/Plan - Problems/Diagnosis (1) Congestive heart failure (CHF) Problem: Acute Qualifiers: Congestive heart failure type: combined Congestive heart failure chronicity : acute on chronic Qualified Code(s): I50.43 - Acute on chronic combined systolic (congestive) and diastolic (congestive) heart failure (2) Atrial fibrillation Problem: Chronic Qualifiers: Atrial fibrillation type: unspecified Qualified Code(s): I48.91 - Unspecified atrial fibrillation (3) Hypoxemia Problem: Acute (4) Generalized weakness Problem: Acute (5) Multiple falls Problem: Acute (6) Adult failure to thrive Problem: Acute
[2017-05-16] MEDS ORDERED: METOPROLOL SUCCINATE 25 MG TABLET.SA PO ONE (14:57)
--- NOTE | 2017-05-16 15:24 | ECHO ---
This report is available in the EMR
--- NOTE | 2017-05-17 09:17 | PN ---
Subjective - Date and Time Seen Date: 05/17/17 Time: 08:54 Subjective Narrative: Mr. Pope states that he is feeling well in this morning. States he had a very good night and slept through the whole night. He doesn't remember awakening during the night. Chest discomfort or unusual shortness of breath. Continues to have weakness in his legs and the right leg vicky on him frequently. Rosario is working on longterm home placement. Apparently, his is in the hospital in [place] during inpatient hemodialysis. She may require senior care placement as well. Objective - Review of Systems Generalized/Overall Review: Reports: Weakness, Weight loss - Of about 60 pounds over the past several months. Denies: Chills, Fever, Malaise, Diaphoresis EENTM: Reports: No Symptoms Reported Respiratory: Reports: No Symptoms Reported, Shortness of Breath - With exertion. Denies: Cough, Orthopnea, Stridor, Wheezing Cardiac: Reports: Edema, Palpitations Abdominal: Reports: No Symptoms Reported Genitourinary Symptoms: Reports: No Symptoms Reported Musculoskeletal Complaints: Reports: Back Pain, Other - Instability of the right knee Neurological: Reports: No Symptoms Reported, Weakness - Generalized Skin: Reports: No Symptoms Reported Endocrine: Reports: No Symptoms Reported - Vitals Vitals: Last Vital Signs Temp 36.5 C 05/17/17 08:29 Pulse 92 05/17/17 08:29 Resp 16 05/17/17 08:29 BP 110/60 05/17/17 08:29 Pulse Ox 97 05/17/17 08:29 - Abnormal Lab Findings Comments:: No lab ordered for today - EKG/Xray Findings EKG: rhythm - His in and out of atrial fibrillation. Most of his rhythm strips from last night and yesterday are showing normal sinus rhythm but he did have some heart rate in the 150s yesterday afternoon that his atrial fib with RVR. I gave him an extra dose of metoprolol at that time and it is slowed his heart rate back down into the 110 range. This morning his heart rate is in the 80s to 90s and mostly sinus with frequent PACs were junctional beats. There is no aberrancy. No PVCs., atrial fibrillation - With occasional RVR. XRAY: chest - Yesterday's chest x-ray shows a developing right lower lobe infiltrate. This does not correlate very well with a picture of pneumonia as he has no coughing, fever, or any sensitivity being ill. - Exam Constitutional: Present: Alert, Oriented x3, Cooperative, Well developed, Elderly, Thin and frail ENT Exam: Present: normal ENT inspection, hearing grossly normal Neck: Present: non-tender. Absent: full range of motion - Due to arthritis in the neck Breasts: Present: Nontender Respiratory: Present: decreased breath sounds - Especially on the right side., rales - Bibasilar rales with right greater than left. Cardiovascular/Chest: Present: normal peripheral pulses, irregularly irregular, edema. Absent: regular rate, rhythm, no chest tenderness Abdomen: Present: Normal bowel sounds, soft, nontender, nondistended /Rectal: Present: Exam deferred Extremity: Present: normal capillary refill, pedal edema. 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 Absent: normal cerebellar test, no motor/sensory deficits Appearance: Present: appropriate appearance, appropriate insight, neat, no memory impairment, denies illness Eye contact: Present: cooperative, good eye contact, normal speech Thoughts: Present: normal thought pattern, no apparent hallucination - Because of the appearance of the chest x-ray indicating developed a right lower lobe infiltrate and his inability to stand to get a lateral chest view I am going to order a CT of the chest without contrast. He has no clinical signs or symptoms of pneumonia. Assessment/Plan - Problems/Diagnosis (1) Congestive heart failure (CHF) Problem: Acute Qualifiers: Congestive heart failure type: combined Congestive heart failure chronicity : acute on chronic Qualified Code(s): I50.43 - Acute on chronic combined systolic (congestive) and diastolic (congestive) heart failure (2) Atrial fibrillation Problem: Chronic Qualifiers: Atrial fibrillation type: unspecified Qualified Code(s): I48.91 - Unspecified atrial fibrillation (3) Hypoxemia Problem: Acute (4) Generalized weakness Problem: Acute (5) Multiple falls Problem: Acute (6) Adult failure to thrive Problem: Acute
[2017-05-17] MEDS: POTASSIUM CHLORIDE 20 MEQ TABLET.SA PO SCH (09:31)
[2017-05-17] MEDS: FUROSEMIDE 40 MG TABLET PO SCH (09:31)
[2017-05-17] MEDS: METOPROLOL SUCCINATE 25 MG TABLET.SA PO SCH ×2 (09:31→22:03)
[2017-05-17] MEDS: LEVALBUTEROL HCL 0.63 MG/3 ML AMPUL IH SCH ×3 (10:52→18:17)
[2017-05-18] MEDS: LEVALBUTEROL HCL 0.63 MG/3 ML AMPUL IH SCH ×3 (05:19→06:08)
[2017-05-18 05:53] LABS: Hematocrit 30.6 % (42.0-52.0); Hemoglobin 9.9 gm/dL (13.5-18.0); Mean Cell Volume 87.2 fl (78-100); Mean Corpuscular Hemoglobin 28.2 pg (27-31); Mean Corpuscular Hgb Conc 32.4 g/dl (32-36); Mean Platelet Volume 9.9 fl (6.0-9.5); Neutrophil # 6.4 K/mm3 (1.3-6.0); Neutrophil % 68.1 % (42-75.0); Platelet Count 238 K/mm3 (150-450); Red Blood Count 3.51 M/mm3 (4.7-6.0); Red Cell Distribution Width 13.2 % (11.5-14.0); White Blood Count 9.5 K/mm3 (4.0-10.5)
[2017-05-18 06:46] LABS: Anion Gap 7.4 mmol/L (6.8-13.8); Calcium * 8.6 mg/dL (7.9-10.9); Carbon Dioxide 35.1 mmol/L (24-32.6); Estimated Creat Clear 91.6; Potassium 3.5 mmol/L (3.4-4.6)
[2017-05-18 07:15] LABS: Magnesium 1.9 mg/dL (1.2-2.8)
[2017-05-18] MEDS: FUROSEMIDE 40 MG TABLET PO SCH (09:32)
[2017-05-18] MEDS: POTASSIUM CHLORIDE 20 MEQ TABLET.SA PO SCH (09:32)
[2017-05-18] MEDS: METOPROLOL SUCCINATE 25 MG TABLET.SA PO SCH (09:33)
--- NOTE | 2017-05-18 11:06 | DS ---
(1) Congestive heart failure (CHF) Problem: Acute Qualifiers: Congestive heart failure type: combined Congestive heart failure chronicity : acute on chronic Qualified Code(s): I50.43 - Acute on chronic combined systolic (congestive) and diastolic (congestive) heart failure (2) Atrial fibrillation Problem: Chronic Qualifiers: Atrial fibrillation type: unspecified Qualified Code(s): I48.91 - Unspecified atrial fibrillation (3) Hypoxemia Problem: Acute (4) Generalized weakness Problem: Acute (5) Multiple falls Problem: Acute (6) Adult failure to thrive Problem: Acute (7) Lung cancer, lower lobe Problem: Acute Qualifiers: Laterality: right Qualified Code(s): C34.31 - Malignant neoplasm of lower lobe, right bronchus or lung Description of Stay: Discharge summary on Wagner [facility] 1935 Wagner was admitted from the ER on May 15 to regular admission. His history is that he was at home and had fallen and was on the floor about 2 hours before family found him because he was unable to get up on his own. He was brought to the hospital per EMS and found to be mildly hypoxic with O2 sat of 88%. He was in atrial fibrillation with RVR and was too debilitated to be able to go home and care for himself. I had seen him in the office about a week earlier with a history of a 60 pound weight loss over the last few months. He had become progressively weaker and had 8 falls in the past few weeks. I have started a workup in the office that included lab work and EKG and echocardiogram. They were actually scheduled to be done the same day he was admitted here and so they were performed as an inpatient instead. He was under sedation on when I saw him on Monday but was not very coherent and his syntax was poor. He was started on diuretic therapy and metoprolol to control his heart rate. Monitor strips have shown him to be in and out of atrial fibrillation and occasionally with RVR so I increased her metoprolol from once a day to twice a day which has helped control his rate. The initial chest x-ray had shown some mild pulmonary effusions and increased pulmonary vascular congestion. A follow- up chest x-ray done 2 days later showed developing infiltrate in the right lower lobe suspicious for pneumonia. There is no clinical correlation with pneumonia however hasn't been no fever or chills cough etc. I elected to do a CT of the chest to further define the infiltrate. 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 I had a long visit with him this morning about these findings and the workup that she had to be done and he expresses understanding and he wishes to pursue a treatment course at this point. His CHF is improved with diuretic therapy he did develop some hypokalemia which is being treated with potassium replacement. Physical therapy has been evaluating him and he is not ambulatory. [facility] need [facility] physical strengthening and balance training. The rest of his blood work has been essentially uneventful and liver enzymes are normal. His albumin is low at 2.0. He has not been eating very well because some foods have developed a smell that is nauseating to him. I.e. He cannot eat hamburger. This change in olfactory perception is often related to tumors. He has been oxygenating better and his O2 sats are in the low 90s for the most of the time. He has been in no respiratory distress here. Procedures Performed: see notes below - , echocardiogram Results and Findings: See discharge narrative above for discussion of chest x-rays and CT findings. The echocardiogram shows pulmonary hypertension and mild tricuspid insufficiency. The right knee x-ray demonstrates chondrocalcinosis with patellar chondromalacia and a large piece of bone in the popliteal fossa. There are degenerative changes of the joint as well. This x-ray was done because of instability in the right knee and frequent buckling. Laboratory Tests 05/15/17 05/15/17 05/16/17 08:25 08:25 05:15 WBC 13.1 H 11.0 H Hgb 11.6 L 10.9 L Hct 34.9 L 33.8 L Potassium 3.4 Carbon Dioxide 33.5 H Est GFR (Non-Af Amer) 84 Magnesium Total Bilirubin 0.8 AST 18 ALT 24 Alkaline Phosphatase 119 Total Protein 6.6 Albumin 2.0 L 05/16/17 05/18/17 05/18/17 05:15 05:45 05:45 WBC 9.5 Hgb 9.9 L Hct 30.6 L Potassium 3.1 L 3.5 Carbon Dioxide 33.1 H 35.1 H Est GFR (Non-Af Amer) 106 D 105 Magnesium 1.8 1.9 Total Bilirubin AST ALT Alkaline Phosphatase Total Protein Albumin Discharge Location: [facility] Disposition: SNF Condition: Fair Discharge Activity: Activity as tolerated, Weight bearing - with assistance only Discharge Diet: General/regular food - no hamburger [facility] Therapy: Physicial Therapy, Occupation Therapy Print Language (Mongolian or Monegasque Available): Mongolian Complete Home Medications List: Complete Home Medication List: Furosemide [Lasix] 20 mg PO DAILY@1300 #30 tablet 05/18/17 Metoprolol Succinate [Toprol Xl] 25 mg PO BID #60 tablet.sa 05/18/17 Potassium Chloride [K-Dur] 20 meq PO DAILY tablet. 05/18/17
[2017-05-18 11:54] VITALS: BP 92/68
== END 2017-05-18 11:37 | DRG 292 ==
LOC: ER 07:18 → MS 11:06
PROVIDERS: ADMIT Family Medicine; ATTEND Family Medicine
PROC: B246ZZZ Ultrasonography of Right and Left Heart (ICD-10-PCS; principal; 2017-05-15)
DX: I50.43 Acute on chronic combined systolic (congestive) and diastolic (congestive) heart failure; R62.7 Adult failure to thrive; R53.1 Weakness; Z87.891 Personal history of nicotine dependence; I48.2 Chronic atrial fibrillation; R09.02 Hypoxemia; C34.31 Malignant neoplasm of lower lobe, right bronchus or lung